=== PATIENT | male | born 1975 | race Caucasian/White ===

== ENCOUNTER → 2023-09-22 01:51 | Outpatient (CLI) | payer BC, SELFPAY ==
--- NOTE | 2023-09-22 | DI.NM_ITS ---
APPROVED REPORT Exam: Pharmacologic Patient Location: Out-Patient Room/Bed: Stress Nurse: Christel Velez RN and Justin Barros RN Ordering Provider:HEATHER PEREZManjit, Contact Number: [phone] BMI: 58.09 Baseline Rhythm: Sinus Rhythm. Indications: Shortness of Breath. 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 Cardiac Medications: Cyclobenzaprine; Escitalopram; Gabapentin; Lisinopril; Lorazepam; Omeprazole; Te stosterone. Allergies: None. Cardiac Risk Factors: Hypertension; Morbid Obesity. Previous Cardiac Procedures: None. Pretest Chest Pain Characteristics: None. Exercise History: Sedentary. Physical Disabilities: None. Lung Sounds: Clear bilaterally throughout, anterior and posterior. Heart Sounds: S1 and S2 auscultated. Stress Test Details Test: Pharmacologic stress testing performed using 0.4 mg of regadenoson per 5 mL given IV over 10 s econds. Reason for pharmacologic stress test: Pt. was wearing flip flops instead of sneakers; unsafe to put pt. on the treadmill.. Nuclear Acquisition: Rest Tc-99m/Stress Tc-99m 1 day Rest Isotope: Tc-99m Sestamibi. Dose: 15.0 Date: 09/22/2023 Injection Time: 1100 Stress Isotope: Tc-99m Sestamibi. Dose: 45.0 Date: 09/22/2023 Injection Time: 1305 HR Resting HR Supine: 68 bpm Max Heart Rate (APMHR): 173.031324 bpm Target HR (85% APMHR): 147.864361 bpm Max HR Achieved: 92 bpm % of APMHR: 53.18 Recovery HR: 75 bpm BP Resting BP Supine: 110/74 mmHg Max BP: 112/50 mmHg Recovery BP: 110/62 mmHg ECG Resting ECG: Sinus Rhythm. Ectopy: None. Stress ECG: Sinus Rhythm. ST Change: Nondiagnostic low heart rate. Arrhythmia: None. Recovery ECG: Sinus Rhythm. Recovery ST Change: Nondiagnostic low heart rate. Recovery Arrhythmia: None. Clinical Stress Symptoms: Dyspnea. Angina Score: None Rate Pressure Product: [id number] Stress ECG Conclusion 1. Resting electrocardiogram showed poor R wave progression 2. Patient underwent testing using pharmacologic stress with regadenoson 3. Peak heart rate achieved was 53% of maximal for age 4. Electrocardiographic portion of the test was nondiagnostic 5. See MPI report Stress Test Summary STAGE HR BP SpO2 Symptoms NOTES Supine 68 110/74 95 1 min post Lexiscan injection 86 112/50 95 Pt. complaining of mild shortness of breath. 3 min post Lexiscan injection 79 110/60 Pt. states that all symptoms have resolved. 6 min post Lexiscan injection 75 110/62 97 Pt. was conversing pleasantly with nursing staff upon leaving the Stress Lab. Pt. left ambulatory in no apparent distress. MPI Conclusion Myocardial perfusion is normal. There is no ischemia or evidence of prior infarction Ejection fraction is 60% with normal wall motion Radiologist Interpretation Radiologist agrees with Industrial Electrical Technician's Interpretation. Radiologist Interpretation by: Cam Valdez MD Interpretation Date/Time: 09/22/2023 18:35:44
[2023-09-22] MEDS: Regadenoson 0.4 MG/5 ML SYR IVP (13:04)
== END ==
PROVIDERS: PCP Nurse Practitioner Family; Visit Provider Registered Nurse
DX: R06.02 Shortness of breath (principal)
CPT/HCPCS: 78452; 93017; J2785